=== PATIENT | female | born 1960 | race Caucasian/White ===

== ENCOUNTER → 2019-01-27 16:18 | Outpatient (CLI) | payer OTHER, SELFPAY ==
[2019-01-27 17:31] LABS: Absolute Lymphocyte Count 1.58 X10^3/uL (0.83-4.51); Absolute Neutrophil Count 5.1 X10^3/uL (2.0-7.7); Basophil# 0.03 X10^3/uL; Basophil% 0.4 % (0-1); Eosinophil# 0.06 X10^3/uL; Eosinophils% 0.8 % (0-5); Hematocrit 40.2 % (37-47); Hemoglobin 13.5 g/dL (12.0-15.0); Lymphocyte # 1.58 X10^3/ul (4.0); Lymphocyte % 22.1 % (19-41); Mean Corp Hgb Conc 33.6 g/dL (32-36); Mean Corpuscular Hgb 29.4 pg (27.0-32.0); Mean Corpuscular Volume 87.6 fL (81-99); Mean Platelet Vol. 9.3 fl (6.2-12.0); Monocyte# 0.38 X10^3/uL; Monocyte% 5.3 % (0-10); NRBC Flagged by Analyzer 0 % (0-5); Neutrophil # 5.09 X10^3/uL (2.7-7.7); Neutrophil % 71.1 % (47-70); Platelet Count 254 K/mm3 (150-450); RBC Distribution Width CV 13.7 % (11.6-14.6); RBC Distribution Width SD 43.7 fl (35.1-43.9); Red Blood Count 4.59 M/mm3 (4.2-5.4); White Blood Count 7.2 K/mm3 (4.4-11.0)
[2019-01-27 17:53] LABS: Anion Gap 9 (5-15); BUN 22 mg/dL (7-18); BUN/Creat Ratio 20.8 RATIO (10-20); Calcium,Total 9.3 mg/dL (8.5-10.1); Chloride 106 mmol/L (98-107); Creatinine, Serum 1.06 mg/dL (0.55-1.02); EST Glomerular Filtration Rate 56 mL/min (>60); Est Glom Filt Rate - Afr Amer 68 mL/min (>60); Glucose 93 mg/dL (74-106); Potassium 3.8 mmol/L (3.5-5.1); Sodium Level 142 mmol/L (136-145)
== END ==
PROVIDERS: Family Provider Family Medicine; PCP Family Medicine; Referring Provider Family Medicine; Visit Provider Family Medicine
DX: I10 Essential (primary) hypertension (principal)
CPT/HCPCS: 36415; 80048; 85025

== ENCOUNTER → 2019-04-04 16:19 | Outpatient (CLI) | payer OTHER, SELFPAY | PROVIDERS: Family Provider Family Medicine; PCP Family Medicine; Referring Provider Family Medicine; Visit Provider Family Medicine | DX: R00.0 Tachycardia, unspecified (principal) | CPT/HCPCS: 36415; 84443 ==

== ENCOUNTER 2020-05-13 20:52 | Emergency (ER) | payer OTHER, SELFPAY ==
[2020-05-13 20:53] VITALS: BP 200/126; PULSE 94; RESP 16; TEMP 36.2; O2SAT 100; BMI 51.3
[2020-05-13] MEDS: cycloBENZAPRine HCl 10 MG Tablet PO (21:37)
[2020-05-13] MEDS: Ketorolac 30 MG/ML Syringe IM (21:37)
--- NOTE | 2020-05-13 21:54 | ED.VIS.GEN ---
History of Present Illness Chief Complaint: Back Informant: Patient Narrative: Patient is a 59-year-old female with a past medical history of hypertension who presents to the emergency department for left hip pain. This was nontraumatic. It has been present over the past 2 to 3 days. She states she has been having issues with her knees and causing her to walk funny. She feels like this is what is aggravating her back and hip pain. She has been taking Aleve for her symptoms which has not been giving her significant relief. She denies any trauma or falls causing the pain. The pain is mostly over the left buttock. Pain does radiate down the leg but not past the knee. She denies any urinary/bowel incontinence/retention. No saddle anesthesia. No fevers or chills. No midline spine pain. She currently rates the pain as an 8 out of 10. Past Medical History - Allergies and Home Meds Allergies/Adverse Reactions: Allergies No Known Allergies Allergy (Verified 05/13/20 20:55) Primary Care Physician: Charlie Capps MD [Primary Care Provider] - 3-5 Days Prior records reviewed: Yes Smoking Status: Never smoker Review of Systems All systems negative except as indicated General: Denies: Chills, Fever, Sweats Eyes: Denies: Visual changes - bilaterally, Diplopia ENT: Denies: Rhinorrhea, Sore throat Cardiovascular: Denies: Chest pain, Palpitations Respiratory: Denies: Dyspnea, Cough, Dyspnea on exertion Gastrointestinal: Reports: Melena. Denies: Abdominal pain, Nausea, Vomiting, Diarrhea Genitourinary: Denies: Dysuria, Hematuria, Frequency Musculoskeletal: Reports: Back pain, Extremity Pain. Denies: Swelling Skin: Denies: Rash, Wounds Neurological: Denies: Headache, Weakness, Numbness Physical Exam Vital Signs/Narrative: Vital Signs Temp Pulse Resp BP Pulse Ox 05/13/20 20:53 97.2 F L 94 16 200/126 H 100 Inital Vital Signs reviewed: Yes General: Well nourished, Well developed, No Acute Distress Head: Normocephalic, Atraumatic Eyes: Perrl, EOMI ENT: Moist mucous membranes, No rhinorrhea Neck: Supple, Nontender Cardiovascular: Regular rate, Regular rhythm, No murmurs Respiratory: No distress, CTA bilaterally, Chest nontender Abdomen: Soft, Nontender, Nondistended, Normal bowel sounds Back: Nontender, Normal Inspection. Negative for: CVA tenderness, Spinal tenderness Extremities: No edema, Tenderness - Over the left piriformis. Neurovascularly intact. She does have full range of motion. 5 out of 5 muscle strength. Skin: Normal color, No rash Neurological: Alert, Oriented x3, Cranial nerves II-XII grossly intact, Normal Strength, Normal Sensation Psychological: Normal affect, Normal Mood Diagnostic/Tx/Re-eval - Medical Decision Making Patient presents to the ED for nontraumatic low back/left buttock pain. Upon arrival to the emerge department she is hypertensive but otherwise does not appear in any acute distress. Will treat symptomatically. Since she has no midline pain or pain in the joint space of the hip will hold off on any imaging. Will treat symptomatically with a dose of Toradol and Flexeril. After treatment patient reassessed and she states that her pain is much better. Is currently 2 out of 10. She does feel comfortable going home. We will write a prescription for the Flexeril. She is to use caution when take this as it can make her tired and should not operate a vehicle while taking the medication. She is to continue take the Aleve with this as needed. At this time will discharge home in stable condition. I do recommend she follow-up with an orthopedic surgeon which she says she is going to follow-up with her sisters doctor. That way she can get her knees checked out. Warning signs and symptoms which to return to the ED are reviewed with her. She understands and is agreeable this plan. All questions answered. ED Disposition - Plan for ED Patient: Disposition: Home or Assisted Living Diagnosis: Low back pain Instructions: ED Back Pain Acute or Chronic Prescriptions: cycloBENZAPRine HCl [Flexeril] 10 mg PO TID PRN PRN 3 Days #9 tab PRN Reason: Muscle Spasm Transmission Status: Received by [id number] Referrals: Charlie Capps MD [Primary Care Provider] - 3-5 Days
== END 2020-05-13 22:55 | disposition home or self-care (01) ==
PROVIDERS: Emergency Provider Emergency Medicine; PCP Family Medicine
DX: M54.5 Low back pain (principal)
CPT/HCPCS: 96372; 99282

== ENCOUNTER → 2020-08-16 10:43 | Outpatient (CLI) | payer OTHER, SELFPAY ==
[2020-08-16 13:25] LABS: ALB/GLOB Ratio 1.1 RATIO (0.9-2.4); AST(SGOT) 16 U/L (15-37); Alanine Aminotransfer ALT/SGPT 20 U/L (13-56); Albumin, Serum 3.5 g/dL (3.2-5.0); Alkaline Phosphatase 107 U/L (45-117); Anion Gap 8 (5-15); BUN 30 mg/dL (7-18); BUN/Creat Ratio 30.1 RATIO (10-20); Calcium,Total 8.8 mg/dL (8.5-10.1); Chloride 111 mmol/L (98-107); Cholesterol 166 mg/dL (200); EST Glomerular Filtration Rate 60 mL/min (>60); Est Glom Filt Rate - Afr Amer 73 mL/min (>60); Globulin 3.3 g/dL (2.2-4.2); Glucose 80 mg/dL (74-106); High Density Lipoprotein 59 mg/dL; Potassium 3.6 mmol/L (3.5-5.1); Protein, Total 6.8 g/dL (6.4-8.2); Sodium Level 144 mmol/L (136-145); Triglycerides 106 mg/dL; Very Low Density Lipoprotein 21 mg/dL (5-40)
== END ==
PROVIDERS: PCP Family Medicine; Referring Provider Family Medicine; Visit Provider Family Medicine
DX: I10 Essential (primary) hypertension (principal)
CPT/HCPCS: 36415; 80053; 80061

== ENCOUNTER → 2020-12-19 14:36 | Outpatient (CLI) | payer OTHER, SELFPAY ==
--- NOTE | 2020-12-19 14:39 | RAD_ITS ---
STUDY: X-RAY - LEFT KNEE REASON FOR EXAM: Female, 60 years old. PAIN TECHNIQUE: 3 view(s) of the knee. COMPARISON: None. FINDINGS: Normal visualized distal femur. Normal visualized proximal tibia and fibula. Normal proximal tibiofibular articulation. There is severe degenerative arthrosis of the medial femorotibial compartment with severe joint space narrowing. There is moderate degenerative arthrosis of the lateral femorotibial compartment with moderate joint space narrowing. There is moderate degenerative arthrosis of the patellofemoral articulation. The soft tissue structures are unremarkable. RAD/Knee 3 Views IMPRESSION: Degenerative arthrosis. Electronically Signed: Davidson Lieberman MD at 10:10 EDT Tel , Service support ,
--- NOTE | 2020-12-19 14:39 | RAD_ITS ---
STUDY: X-RAY - RIGHT KNEE REASON FOR EXAM: Female, 60 years old. PAIN TECHNIQUE: 3 view(s) of the knee. COMPARISON: None. FINDINGS: Normal visualized distal femur. Normal visualized proximal tibia and fibula. Normal proximal tibiofibular articulation. There is severe degenerative arthrosis of the medial femorotibial compartment with severe joint space narrowing. There is severe degenerative arthrosis of the lateral femorotibial compartment with severe joint space narrowing. There is severe degenerative arthrosis of the patellofemoral articulation. There is a soft tissue prominence in the suprapatellar region suggesting a small volume joint effusion. The soft tissue structures are unremarkable. RAD/Knee 3 Views IMPRESSION: Degenerative arthrosis. Electronically Signed: Davidson Lieberman MD at 10:10 EDT Tel , Service support ,
== END ==
PROVIDERS: PCP Family Medicine; Referring Provider Family Medicine; Visit Provider Family Medicine
DX: M25.562 Pain in left knee (principal)
CPT/HCPCS: 73562

== ENCOUNTER → 2023-10-08 | Outpatient (CLI) | payer MEDICARE, OTHER, SELFPAY ==
--- NOTE | 2023-10-08 14:50 | BI_ITS ---
MAMMOGRAPHY - BILATERAL SCREENING REASON FOR EXAM: Female, 63 years old. Routine annual screening examination. PERTINENT HISTORY: Non-contributory. TECHNIQUE: Digital bilateral breast yoav (3D mammographic acquisition) in the CC and MLO projections. 2-D mediolateral oblique (MLO) and craniocaudad (CC) views of both breasts were obtained. CAD: Full Field Digital Mammography with Computer Added Detection was performed. COMPARISON: Comparison is made with prior study dated January 21, 2011. FINDINGS: Breast Composition: There are scattered areas of fibroglandular density. There are no dominant masses or suspicious calcifications. No other significant abnormalities are identified. There has been no significant change since the prior study. BI/SCRN MAMM (CAD)W/YOAV BILAT IMPRESSION: Stable bilateral screening mammogram. Yearly follow-up mammogram recommended. (A) ASSESSMENT CATEGORY: BIRADS Category 1: Negative. A letter regarding these results will be sent to the patient by the facility within 30 days. Approximately 10% of breast cancers are not detected by mammography. A normal mammogram should not delay biopsy of a clinically suspicious abnormality. [id number] Electronically Signed: Amari Resendiz MD at 15:33 EDT ,
== END | disposition home or self-care (01) ==
LOC: OPBI 14:47
DX: Z12.31 Encounter for screening mammogram for malignant neoplasm of breast (principal)
CPT/HCPCS: 77063; 77067

== ENCOUNTER → 2023-11-23 | Outpatient (CLI) | payer MEDICARE, OTHER, SELFPAY ==
--- NOTE | 2023-11-23 12:49 | US_ITS ---
STUDY: RENAL ULTRASOUND - COMPLETE REASON FOR EXAM: Female, 63 years old. Flank pain TECHNIQUE: Ultrasound evaluation of the kidneys was performed with real-time and static vargas-scale imaging. COMPARISON: None. FINDINGS: RIGHT KIDNEY: Normal location of the right kidney, which is normal in size. The right kidney measures 9.6 x 3.7 x 4.5 cm. There is likely age-related thinning of the renal cortex. The renal cortex measures 0.7 cm. There is a simple 1.3 cm cyst. There are no right renal calculi. There is mild hydronephrosis of the right kidney. DISTAL RIGHT URETER: There is non-visualization of the distal right ureter. There is no demonstrated right ureterovesical junction calculus. There is a visualized right ureteral jet. LEFT KIDNEY: Normal location of the left kidney, which is normal in size. The left kidney measures 11.1 x 3.9 x 4.4 cm. There is likely age-related thinning of the renal cortex. The renal cortex measures 0.8 cm. There is no left renal mass or cyst. There are no left renal calculi. There is mild hydronephrosis of the left kidney. DISTAL LEFT URETER: There is non-visualization of the distal left ureter. There is no demonstrated left ureterovesical junction calculus. There is a visualized left ureteral jet. AORTA: There is no elongation or tortuosity of the abdominal aorta. I.V.C.: The IVC is patent. BLADDER: The bladder is minimally distended US/Kidney and Bladder IMPRESSION: Mild bilateral hydronephrosis of uncertain etiology Simple 1.3 cm right renal cyst. No specific follow-up needed Electronically Signed: Andrew Wright MD at 14:46 EDT ,
== END | disposition home or self-care (01) ==
LOC: US 12:42
DX: N17.9 Acute kidney failure, unspecified (principal)
CPT/HCPCS: 76770

== ENCOUNTER → 2025-06-05 | Outpatient (CLI) | payer MEDICARE, OTHER, SELFPAY ==
--- NOTE | 2025-06-05 12:25 | BI_ITS ---
EXAM: SCRN MAMM (CAD)W/YOAV BILAT DATE: 06/05/2025 CLINICAL HISTORY: F, Age 64 y/o , SCREENING No family history. TECHNIQUE: Procedure Code: [id number] Modality: MG Procedure: SCRN MAMM (CAD)W/YOAV BILAT COMPARISON: Prior exam(s) dated October 08, 2023.. FINDINGS: TISSUE DENSITY: There are scattered areas of fibroglandular density. Bilateral Breast Mammographic Findings: No significant masses, calcifications or other abnormalities are identified. Stable small benign-appearing bilateral axillary lymph nodes. No suspicious masses, areas of developing architectural distortion, or suspicious calcifications. There has been no significant interval change. BI/SCRN MAMM (CAD)W/YOAV BILAT IMPRESSION: Stable bilateral screening mammogram. OVERALL FINAL ASSESSMENT BI-RADS 2: BENIGN RECOMMENDATION: Routine annual follow-up in 1 Year Additional Recommendation none A letter with findings and recommendations will be mailed to the patient. Reading Location: [facility]
== END | disposition home or self-care (01) ==
LOC: OPBI 12:23
PROVIDERS: PCP Nurse Practitioner Family; Referring Provider Nurse Practitioner Family; Visit Provider Nurse Practitioner Family
DX: Z12.31 Encounter for screening mammogram for malignant neoplasm of breast (principal)
CPT/HCPCS: 77063; 77067